=== PATIENT | male | born 1955 | race Caucasian/White ===

== ENCOUNTER 2016-05-25 09:15 | Inpatient (IN) | payer OTHER ==
[2016-07-01] MEDS ORDERED: TRANEXAMIC ACID 3,000 MG in NS 50 ML IRR ONE (06:00)
[2016-07-01] MEDS ORDERED: CHLORHEXIDINE GLUC HIBICLENS 118 ML BTL TP ONE (06:00)
[2016-07-01] MEDS ORDERED: ACETAMINOPHEN 325 MG TAB PO ONE (06:00)
[2016-07-01] MEDS ORDERED: ROPI/epiNEPH/KETOROLAC JOINT COCKTAIL IU ONE (06:00)
[2016-07-01] MEDS ORDERED: FAMOTIDINE 20 MG TAB PO ONE (06:00)
[2016-07-01] MEDS ORDERED: DEXAMETHASONE 4 MG/ML VIAL IVP ONE (06:00)
[2016-07-01] MEDS ORDERED: TRANEXAMIC ACID 3,000 MG/50 ML BAG IRR ONE (06:52)
[2016-07-01] MEDS ORDERED: SKIN ADHESIVE (DERMABOND) 1 EACH TP ONE ×2 (06:52→12:42)
[2016-07-01] MEDS ORDERED: VANCOMYCIN 1 GM VIAL IV ONE (06:52)
[2016-07-01] MEDS ORDERED: ceFAZolin 2 GM in D5W 100 ML IV ONE (08:30)
[2016-07-01] MEDS ORDERED: ACETAMINOPHEN 325 MG TAB ONE (09:40)
[2016-07-01] MEDS ORDERED: DEXAMETHASONE 4 MG/ML VIAL ONE ×2 (09:40→11:21)
[2016-07-01] MEDS ORDERED: FAMOTIDINE 20 MG TAB ONE (09:41)
[2016-07-01] MEDS ORDERED: PROPOFOL/EMULSION 500 MG/50 ML BOTTLE IV ONE (10:07)
[2016-07-01] MEDS ORDERED: fentaNYL 100 MCG/2 ML INJ ONE ×2 (10:54→13:11)
[2016-07-01] MEDS ORDERED: ONDANSETRON 4 MG/2 ML VIAL ONE (10:55)
[2016-07-01] MEDS ORDERED: KETOROLAC 30 MG/1 ML SDV ONE (10:55)
[2016-07-01] MEDS ORDERED: LIDOCAINE 2% 5 ML SDV ONE ×2 (10:55→11:20)
[2016-07-01] MEDS ORDERED: PROPOFOL 200 MG/20 ML VIAL ONE (10:55)
[2016-07-01] MEDS ORDERED: MIDAZOLAM 2 MG/2 ML VIAL ONE (10:58)
[2016-07-01] MEDS ORDERED: ROPIVACAINE HCL 150 MG/30 ML INJ ONE (11:20)
[2016-07-01] MEDS ORDERED: HYDROmorphONE/DILAUDID 2 MG/ML SYR ONE (11:40)
[2016-07-01] MEDS ORDERED: diphenhydrAMINE 25 MG CAP PO PRN (12:48)
[2016-07-01] MEDS ORDERED: ONDANSETRON 4 MG/2 ML VIAL IVP PRN (12:48)
[2016-07-01] MEDS ORDERED: ONDANSETRON DISINTEGRATING 4 MG TAB PO PRN (12:48)
[2016-07-01] MEDS ORDERED: PHARMACY PAIN CONSULT 1 EA MISC PRN (12:48)
[2016-07-01] MEDS ORDERED: DIPHENOXYLATE/ATROPINE LOMOTIL 1 TAB PO PRN (12:48)
[2016-07-01] MEDS ORDERED: MAGNESIUM HYDROXIDE 30 ML UDCUP PO PRN (12:48)
[2016-07-01] MEDS ORDERED: PROMETHAZINE HCL 25 MG/ML INJ IVP PRN (12:48)
[2016-07-01] MEDS ORDERED: BISACODYL 10 MG SUPP PR PRN (12:48)
[2016-07-01] MEDS ORDERED: LACTULOSE 20 GM/30 ML UDCUP PO PRN (12:48)
[2016-07-01] MEDS ORDERED: POLYETHYLENE GLYCOL 3350 17 GM PKT PO PRN (12:48)
[2016-07-01] MEDS ORDERED: PROMETHAZINE HCL 25 MG SUPPR PR PRN (12:48)
[2016-07-01] MEDS ORDERED: METOCLOPRAMIDE 10 MG/2 ML VIAL IVP PRN (12:48)
[2016-07-01] MEDS ORDERED: CYCLOBENZAPRINE 10 MG TAB PO PRN (12:48)
[2016-07-01] MEDS ORDERED: TEMAZEPAM 15 MG CAP PO PRN (12:48)
--- NOTE | 2016-07-01 12:48 | POSTOPPROG ---
Post Op Note Date of Operation: 07/01/16 Surgeon: Joyce Dhillon Safety Coordinator: raji dhillon Anesthesiologist: dr. maddox Anesthesia: GET(General Endotracheal), Other (Specify) (adductor canal block) Pre-op Diagnosis: right knee OA Post-op Diagnosis: same Indication: right knee pain due to OA that failed conservative measures Procedure: R TKA Findings: severe knee OA Inf/Abcess present in the surg proc area at time of surgery?: No EBL: 50-100
[2016-07-01] MEDS ORDERED: LR 1,000 ML IV SCH (13:00)
[2016-07-01] MEDS ORDERED: ceFAZolin 2 GM/DEXTROSE 100 ML IV SCH (14:00)
--- NOTE | 2016-07-01 14:45 | DX ---
Right Knee, Two Views History: Postop alignment check. Findings: A right knee prosthesis is present and is in excellent postoperative alignment. There is ga s in the soft tissues as expected postoperatively. A metal fixation plate is seen at the patellar ten don insertion site at the tibial tuberosity. Impression: Excellent postoperative alignment.
[2016-07-01] MEDS: ceFAZolin 2 GM/DEXTROSE 100 ML IV SCH ×2 (15:57→20:58)
[2016-07-01] MEDS: oxyCODONE IR 5 MG TAB PO PRN ×2 (17:49→21:55)
[2016-07-01] MEDS: ACETAMINOPHEN 325 MG TAB PO SCH ×2 (17:50→23:31)
[2016-07-01] MEDS: ASPIRIN 325 MG TAB PO SCH (20:54)
[2016-07-01] MEDS: FAMOTIDINE 20 MG TAB PO SCH (20:54)
[2016-07-01] MEDS: SENNOSIDES/DOCUSATE SODIUM TAB PO SCH (20:54)
--- NOTE | 2016-07-01 22:37 | GOP ---
[f rep st] OPERATIVE REPORT DATE OF OPERATION: 07/01/2016 SURGEON: Fahad Singer MD DUPLICATING MACHINE MECHANIC: Brisa Singer PA-C ANESTHESIA: General. PREOPERATIVE DIAGNOSIS: Right knee osteoarthritis. POSTOPERATIVE DIAGNOSIS: Right knee osteoarthritis. PROCEDURE PERFORMED: Right total knee arthroplasty. FINDINGS/PATHOLOGY: Severe tricompartmental osteoarthritis. ESTIMATED BLOOD LOSS: 30 cc. INDICATIONS: This is a 60-year-old male with severe and progressive pain and deformity of the right @ knee unresponsive to conservative care. Risks and benefits of the surgical intervention were explained in detail. DESCRIPTION OF PROCEDURE: The patient was brought to the operative room and placed on the table in the supine position. Spinal anesthesia was induced without difficulty. A pneumatic tourniquet was applied about the right proximal thigh, and the leg was prepped and draped in a sterile fashion. The leg flor was applied. After exsanguination by elevation the tourniquet was inflated to 250 mm of mercury. Incision was made anterior medial from the tibial tuberosity to a point 2 cm proximal to the superior pole of the patella. Medial parapatellar arthrotomy was carried out from the superior pole of the patella and posteriorly in line with the fibers of the Type II VMO. The medial collateral ligament was elevated and the infrapatellar fat pad was resected. The patella was everted and the articular surface was excised. A 38 mm patellar button was placed. The distal femoral guide hole was drilled and the 6 degree alignment florencio was placed. A 8 mm distal femoral cut was made without difficulty. Attention was turned to the tibia and a standard 9 mm cut based on the lateral tibial condyle was performed. The tibial articular surface was excised without difficulty. Attention was turned back to the femur and a size 6 Triathlon femoral cutting block was positioned. Anterior, posterior, and chamfer cuts were made, followed by the intercondylar box cut. The knee was extended and the remnants of the medial and lateral meniscus were excised. The posterior capsule was injected with ropivacaine, epinephrine and Toradol. A size 7 MIS mini-keel tibial tray was positioned. Trial reduction was then carried out. There was excellent range of motion, alignment, and stability using the 13 mm polyethylene. All trials were then removed. The joint was thoroughly irrigated and carefully dried. Two packages of cement and 2 grams of vancomycin were mixed in the vacuum mixer and placed on the fixation surfaces of all surfaces of the components. The components were implanted and all excess cement was thoroughly removed. The permanent 13 mm polyethylene X3 was placed without difficulty. The tourniquet was deflated and all bleeders were coagulated. The wound was thoroughly irrigated and closed using interrupted sutures of 2-0 Vicryl for the joint capsule. The subcu was closed with 3-0 Vicryl and the skin with 4-0 Monocryl. Dermabond and Steri-Strips were applied followed by a compressive dressing. The patient was then moved from the operating room to the recovery room in good condition, having tolerated the procedure well. /[id number]/MODL MTDD
[2016-07-01 23:33] VITALS: RESP 16
[2016-07-02] MEDS: ACETAMINOPHEN 325 MG TAB PO SCH ×2 (05:24→11:07)
[2016-07-02 05:35] LABS: HEMATOCRIT 39.8 % (40.0-51.0); HEMOGLOBIN 13.8 g/dL (13.7-17.5)
[2016-07-02] MEDS: ceFAZolin 2 GM/DEXTROSE 100 ML IV SCH (05:36)
[2016-07-02 07:22] VITALS: BP 108/71; TEMP 98
[2016-07-02] MEDS: SENNOSIDES/DOCUSATE SODIUM TAB PO SCH (07:52)
[2016-07-02] MEDS: ASPIRIN 325 MG TAB PO SCH (07:52)
[2016-07-02] MEDS: FAMOTIDINE 20 MG TAB PO SCH (07:52)
--- NOTE | 2016-07-02 10:11 | SOAPPROG ---
SOAP Progress Note Assessment/Plan: Assessment: Segun is doing well POD 1 s/p R TKA 1) pain management: doing well on oral pain meds. well controlled. 2) anemia: level expected initially postop, asymptomatic. continue to monitor 3) VTe ppx: aspirin 325mg daily, BERNABE proe and SCDs. 4) D/c planning: patient may be d/c'd to home today. Plan: 07/02/16 10:10 Subjective: Segun is doing well this morning , denies SOB, chest pain and N/V. Objective: Vital Signs Temp Pulse Resp BP Pulse Ox 36.6 C 78 16 108/71 94 07/02/16 07:21 07/02/16 07:21 07/02/16 07:21 07/02/16 07:21 07/02/16 07:21 Laboratory Results 07/02/16 05:26 07/01/16 07/02/16 07/03/16 05:59 05:59 05:59 Intake Total 3430 Output Total 1810 Balance 1620 RLE: incision dressing is clean and dry, NVI, +pf/df ICD10 Worksheet Patient Problems: Problems Problem Status Diagnosed Primary localized osteoarthritis of right knee Acute
[2016-07-02] MEDS: oxyCODONE IR 5 MG TAB PO PRN (11:07)
[2016-07-02 11:48] VITALS: PULSE 87; O2SAT 93
--- NOTE | 2016-07-02 14:03 | GDS ---
[f rep st] DISCHARGE SUMMARY ADMISSION DIAGNOSIS: Right knee osteoarthritis. DISCHARGE DIAGNOSIS: Right knee osteoarthritis. PROCEDURE: Right total knee arthroplasty. VTE PROPHYLAXIS: Aspirin recommended for 3 weeks daily. BRIEF DESCRIPTION OF HOSPITAL STAY: Patient was admitted for an elective joint arthroplasty. The pa tient tolerated the procedure well and has passed physical therapy. The patient was given appropriat e antibiotic prophylaxis and venous thromboembolism prophylaxis. The patient's pain was well control led on oral pain medication, patient was holding down food, and had urinated. Decision was made to d ischarge the patient. The patient was given post-operative prescriptions pre-operatively. PLAN: Please follow up as scheduled July 21, 2016, at 9:45 a.m. /[id number]/MODL
== END 2016-07-02 11:18 | disposition home or self-care (01) | DRG 470 ==
LOC: F3N 07-01 08:55
PROVIDERS: ADMIT Orthopaedic Surgery; ATTEND Orthopaedic Surgery
PROC: 0SRC0JZ Replacement of Right Knee Joint with Synthetic Substitute, Open Approach (ICD-10-PCS; principal; 2016-07-01 11:15)
DX: M17.11 Unilateral primary osteoarthritis, right knee (principal); G47.33 Obstructive sleep apnea (adult) (pediatric)
CPT/HCPCS: 97116-GP; 97161-GP; 97165-GO; C1713; J0171; J0690; J1100; J1170; J1885; J2250; J2405; J2704; J2795; J3010; J3370